=== PATIENT | female | born 1960 | race Caucasian/White ===

== ENCOUNTER → 2021-05-19 | Outpatient (CLI) | payer MEDICAID, BC ==
[2021-05-19 14:23] VITALS: BP 142/76; PULSE 76; TEMP 98.1; BMI 39.7
--- NOTE | 2021-05-19 15:26 | P.HPBAR ---
Bariatric H&P - History & Physicial H&P Date: 05/19/21 History & Physicial: Visit/CC: sleeve f/u Patient initial contact: Initial weight: Initial weight in pounds: Height: 5 ft 10 in Initial BMI: Last weight: Current weight: 125.645 kg Current weight in pounds: 277.00 Current BMI: 39.7 [place] body weight (based on NIH guidelines): 68.039 kg Excess body weight loss: The patient is a 61 year-old F who presents for Bariatric Assessment. Patient presents today for bariatric follow-up. She has had excellent weight loss. 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 Past Medical History Past Medical History: Hyperlipidemia, Osteoarthritis (OA) Additional Past Medical History / Comment(s): macular degeneration History of Any Multi-Drug Resistant Organisms: None Reported Past Surgical History: Adenoidectomy, Bariatric Surgery, Section, Cholecystectomy, Hysterectomy, Tonsillectomy Additional Past Surgical History / Comment(s): lap band removal sleeve gastrectomy 2010 Past Anesthesia/Blood Transfusion Reactions: No Reported Reaction Smoking Status: Never smoker Surgical - Exam Vital Signs Temp Pulse BP 98.1 F 76 142/76 05/19/21 14:03 05/19/21 14:03 05/19/21 14:03 - General well developed, well nourished, no distress - Eyes PERRL - ENT normal pinna - Neck no masses - Respiratory normal expansion - Cardiovascular Rhythm: regular - Abdomen Abdomen: soft, non tender - Integumentary Large panniculus with chronic skin irritation Bariatric Assessment & Plan Plan: Panniculus. We'll perform panniculectomy. Bariatric Checklist Checklist: Plan: Checklist: EGD: 1. Hiatal hernia: 2. H. Pylori: HgbA1c: Vitamin D: Smoking: Primary care physician referral: Psychiatry clearance: Cardiology clearance: Sleep study: Diet journal: VTE risk score: VTE risk level: Rehab needs at discharge:
== END ==
LOC: BARWHC3 13:06
PROVIDERS: ATTEND Surgery
DX: Z09 Encounter for follow-up examination after completed treatment for conditions other than malignant neoplasm (principal); E65 Localized adiposity; Z98.84 Bariatric surgery status; E78.5 Hyperlipidemia, unspecified; M19.90 Unspecified osteoarthritis, unspecified site; Z91.048 Other nonmedicinal substance allergy status
CPT/HCPCS: 99211